=== PATIENT | female | born 1955 | race Caucasian/White ===

== ENCOUNTER 2020-06-06 13:37 | Inpatient (IN) ==
[2020-06-06] MEDS ORDERED: IOPAMIDOL 100 ML BOTTLE IV ONE (13:38)
[2020-06-06] MEDS ORDERED: 0.9 % SODIUM CHLORIDE 2,000 ML IV ONE (13:59)
[2020-06-06] MEDS ORDERED: 0.9 % SODIUM CHLORIDE 500 ML IV ONE (14:01)
--- NOTE | 2020-06-06 14:52 | XRay Report ---
INDICATION: rales, fever TECHNIQUE: AP portable semiupright chest x-ray COMPARISON: Previous chest x-ray dated 06/28/2015 FINDINGS:Right-sided ventriculoperitoneal shunt catheter Lungs:Lungs are negative. No focal pulmonary parenchymal infiltrate or mass Heart, vascular:No significant cardiomegaly. Pulmonary vascularity is normal. No pulmonary edema or pulmonary congestion Mediastinum, vimal:No mediastinal widening. No hilar mass Pleura:No pleural fluid. No pleural-based mass or calcification Skeletal:Negative. IMPRESSION: 1. Negative AP chest x-ray 2. No significant interval change since 06/28/2015 Interpreted and Authenticated by: Logan Rankin 06/06/20
[2020-06-06 15:21] LABS: Basophils # (Auto) 0.06 K/mcL (0.00-0.20); Basophils % (Auto) 0.7 % (0.0-2.0); Eosinophils # (Auto) 0 K/mcL (0.00-0.70); Eosinophils % (Auto) 0 % (0.0-7.0); Hemoglobin 14.1 g/dL (12.0-15.0); Lymphocytes # (Auto) 1.58 K/mcL (1.50-4.80); Lymphocytes % (Auto) 17.8 % (15.0-49.0); Mean Cell Volume 94.6 fL (80.0-100.0); Mean Platelet Volume 11.4 fL (7.4-10.4); Monocytes # (Auto) 0.99 K/mcL (0.10-0.90); Monocytes % (Auto) 11.1 % (1.0-12.0); Neutrophils % (Auto) 70.4 % (38.0-78.0); Platelet Count 264 K/mcL (140-440); RBC 4.65 M/mcL (4.00-5.20); Red Cell Distribution Width 14.6 % (11.5-14.5); WBC 8.9 K/mcL (4.5-11.0)
[2020-06-06 15:28] LABS: Appearance,Urine CLEAR (Clear); Bilirubin,Urine Negative (Negative); Color,Urine YELLOW; Culture Indicated,Urine No; Glucose,Urine (UA) >=500 mg/dL (Negative); Ketones,Urine 5 mg/dL (Negative); Leukocyte Esterase,Urine Negative /ug (Negative); Mucus,Urine MOD /hpf; Nitrate,Urine Negative (Negative); Protein,Urine Negative (Negative); Specific Gravity,Urine 1.022 (1.000-1.035); Urine Blood Negative (Negative); Urine RBC 1 /hpf (0-3); Urine Squamous Epithelial Cell 0 /hpf (0-4); Urine WBC 1 /hpf (0-4); Urobilinogen,Urine Negative
[2020-06-06] MEDS ORDERED: ACETAMINOPHEN 325 MG TABLET PO ONE (15:45)
[2020-06-06] MEDS ORDERED: INSULIN REGULAR, HUMAN 1 UNIT/0.01 ML UNIT IV ONE (15:45)
[2020-06-06] MEDS ORDERED: ACETAMINOPHEN 650 MG/65 ML BAG IV ONE (15:48)
[2020-06-06 15:55] LABS: Beta Hydroxybutyrate 0.91 mmol/L (<0.27)
[2020-06-06 15:56] LABS: Creatine Kinase 153 U/L (24-170)
[2020-06-06 16:03] LABS: ALT/SGPT 11 U/L (<40); AST/SGOT 16 U/L (<32); Albumin 3.5 gm/dL (3.2-5.2); Albumin/Globulin Ratio 0.9 (1.0-2.3); Alkaline Phosphatase 121 U/L (39-117); Bilirubin,Total 0.6 mg/dL (0.1-1.0); Blood Urea Nitrogen 49 mg/dL (8-23); Calcium 9.1 mg/dL (8.6-10.4); Carbon Dioxide 25 mmol/L (22-30); Chloride 98 mmol/L (96-108); Glomerular Filtration Rate 43; Glucose 467 mg/dL (70-105)
--- NOTE | 2020-06-06 16:34 | Emergency Department Note ---
HPI General Chief complaint: Altered Mental Status Stated complaint: altered mental status, fever Time Seen by Provider: 06/06/20 16:49 Source: EMS Mode of arrival: EMS Limitations: altered mental status History of Present Illness HPI Narrative: Narrative: 65-year-old female comes in from [facility] nursing facility for fever and decreased mental status. She is nonverbal normally and interacts with staff only in a limited fashion. However this is much decreased. Her temperature is 102.4. She normally has rales and is on 2 L of oxygen which she continues today. I am not able to get any meaningful history or review of systems except from the nursing facility She is blind. She only moans she does not talk. She has a history of prior stroke. She is a full code. I briefly discussed with the label tacker who also sees this patient at the longterm-she notes the patient is at her baseline in terms of verbal-and is usually positioned as such Related Data Home Medications Medication Instructions Recorded Confirmed acetaminophen 325 mg PO Q4HP PRN 08/29/15 07/17/16 ascorbic acid (vitamin C) 500 mg PO BID 06/06/20 06/06/20 cholecalciferol (vitamin D3) 50 mcg PO QDAY 06/06/20 06/06/20 dextromethorphan-quinidine 1 cap PO BID 06/06/20 06/06/20 [Nuedexta] divalproex [Depakote] 250 mg PO BID 06/06/20 06/06/20 escitalopram oxalate 20 mg PO QDAY 06/06/20 06/06/20 insulin aspart U-100 See Protocol SUBCUT TID 06/06/20 06/06/20 insulin detemir U-100 See Rx Instructions .ROUTE .COMPLEX 06/06/20 06/06/20 multivitamin [Multiple Vitamins] 1 tab PO QDAY 06/06/20 06/06/20 omeprazole 20 mg PO QAM 06/06/20 06/06/20 oxycodone 5 mg PO BID 06/06/20 06/06/20 polyethylene glycol 3350 17 g PO BID 06/06/20 06/06/20 quetiapine [Seroquel] 25 mg PO BID 06/06/20 06/06/20 sennosides-docusate sodium 1 tab-cap PO BID 06/06/20 06/06/20 tamsulosin [Flomax] 0.4 mg PO QHS 06/06/20 06/06/20 white petrolatum-mineral oil 1 applic OPHTHALMIC (EYE) QHS 06/06/20 06/06/20 [Refresh Lacri-Lube] Allergies Allergy/AdvReac Type Severity Reaction Status Date / Time Amoxicillin [From Augmentin] Allergy Unknown Unknown Verified 06/06/20 15:28 clavulanic acid Allergy Unknown Unknown Verified 06/06/20 15:28 morphine Allergy Unknown Verified 06/06/20 13:41 Penicillins [PENICILLINS] Allergy Unknown Unknown Verified 06/06/20 13:41 Review of Systems ROS ROS Narrative: Narrative: Limitations: ROS unobtainable due to patients medical condition [facility] Narrative Patient History Narrative: Narrative: Medical/Surgical/Family History All Active Problems (Updated 06/06/20 @ 18:38 by Max Ray MD) DKA, type 1 (Acute) Acute kidney injury (Acute) Fever of unknown origin (Acute) Constipation (Acute) Hyperglycemia (Chronic) Encephalopathy (Chronic) Acute renal failure (Chronic) Sepsis (Chronic) History of cerebral hemorrhage (Chronic) Hx MRSA infection (Chronic) Gastroesophageal reflux (Chronic) Hypothyroidism (Chronic) Dementia (Chronic) Delusional disorder (Chronic) Depression (Chronic) 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) Hypertension (Chronic) Fracture of hip (Chronic) Medical History Acute renal failure (Chronic) Delusional disorder (Chronic) Dementia (Chronic) Depression (Chronic) 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 Her eyes are shut and will not open them; she is nonverbal. No nasal discharge or congestion. Oropharynx with dry buccal mucosa. Neck is supple without lymphadenopathy or thyromegaly. Heart is regular rate and rhythm. Lungs with coarse rales in all hatch. I do not hear any wheezing. She is normoxic on 2 L nasal cannula. Abdomen is soft nontender nondistended. No peritoneal signs or guarding. No pedal edema. General Limitations: altered mental status Course Vital Signs Vital signs: Vital Signs Temperature 102.4 F H 06/06/20 13:37 Pulse Rate 120 H 06/06/20 13:37 Respiratory Rate 20 06/06/20 13:37 Blood Pressure 128/61 06/06/20 13:37 Pulse Oximetry (%) 96 06/06/20 13:37 Temperature 101.6 F H 06/06/20 18:31 Pulse Rate 109 H 06/06/20 18:31 Respiratory Rate 24 H 06/06/20 18:31 Blood Pressure 118/54 06/06/20 18:31 Pulse Oximetry (%) 95 06/06/20 18:31 MDM MDM Narrative Medical decision making narrative: Narrative: Concern with DKA as she is a type I diabetic and has a blood sugar over 500 with altered mental status. We will give her 10 units of insulin start fluids. Insulin drip However DKA will not cause a fever but can be caused by a fever. We will screen her for flu and check for Covid although she already had a 2 months ago. Start acetaminophen Covid and influenza Bren swabs were negative. She continued to have fever. Blood sugar came down to 300 with just fluid and 10 units. Insulin drip at 2 units/h Laboratory confirms DKA but we are unclear on the source. X-ray of the chest is negative. We will do chest abdomen pelvis CT scan. Mild increase in creatinine to 1.3-acute kidney injury. She already has a Burden in place with dark yellow urine in the bag Troponin is the top end of normal at 0.03. We will repeat that-this is likely secondary to the other issues going on and not a true heart issue-but we will check it out and get an EKG EKG is unrevealing. CT scan of the chest abdomen pelvis showed multiple chronic findings but no acute to account for her fever. She has severe constipation but no evidence of mechanical bowel obstruction. See full report for chronic findings-of note is severe coronary calcifications, advanced for age Because we did not find a source for her fever I went back and did a full skin exam on her she does have a tiny stage I pressure ulcer at the right buttock. However I do not see any lesions that would account for the fever Repeat troponin showed no change Briefly discussed with Dr. Shook the hospitalist-he agreed to accept the patient for fever of unknown source and DKA Lab Data Lab results reviewed: Yes I reviewed the patient's lab results. Result diagrams: 06/06/20 14:43 06/06/20 14:43 Labs: Lab Results 06/06/20 06/06/20 06/06/20 Range/Units 14:00 14:42 14:43 WBC 8.9 (4.5-11.0) K/mcL RBC 4.65 (4.00-5.20) M/mcL Hgb 14.1 (12.0-15.0) g/dL Hct 44.0 (36.0-48.0) % MCV 94.6 (80.0-100.0) fL MCH 30.3 (26.0-34.0) pg MCHC 32.0 (31.0-36.0) g/dL RDW 14.6 H (11.5-14.5) % Plt Count 264 (140-440) K/mcL MPV 11.4 H (7.4-10.4) fL Neut % (Auto) 70.4 (38.0-78.0) % Lymph % (Auto) 17.8 (15.0-49.0) % [place] % (Auto) 11.1 (1.0-12.0) % Eos % (Auto) 0 (0.0-7.0) % Baso % (Auto) 0.7 (0.0-2.0) % Lymph # (Auto) 1.58 (1.50-4.80) K/mcL [place] # (Auto) 0.99 H (0.10-0.90) K/mcL Eos # (Auto) 0 (0.00-0.70) K/mcL Baso # (Auto) 0.06 (0.00-0.20) K/mcL Absolute Neutrophils 6.27 (1.80-8.00) K/mcL VBG Lactic Acid (0.5-2.0) mmol/L Sodium (133-145) mmol/L Potassium (3.3-5.1) mmol/L Chloride (96-108) mmol/L Carbon Dioxide (22-30) mmol/L Anion Gap (8.0-16.0) BUN (8-23) mg/dL Creatinine (0.6-1.1) mg/dL POC Creatinine (0.6-1.2) mg/dL GFR Calculation Glucose (70-105) mg/dL Calcium (8.6-10.4) mg/dL Total Bilirubin (0.1-1.0) mg/dL AST (<32) U/L ALT (<40) U/L Alkaline Phosphatase (39-117) U/L Ammonia (11-51) umol/L Total Creatine Kinase (24-170) U/L Troponin T (<0.03) ng/mL Total Protein (5.9-8.4) gm/dL Albumin (3.2-5.2) gm/dL Globulin (2.2-3.7) gm/dL Albumin/Globulin Ratio (1.0-2.3) Beta-Hydroxybutyrate 0.91 H (<0.27) mmol/L Urine Color Yellow Urine Appearance Clear (Clear) Urine pH 5.0 (5.0-9.0) Ur Specific [place] 1.022 (1.000-1.035) Urine Protein Negative (Negative) mg/dL Urine Glucose (UA) >=500 A (Negative) mg/dL Urine Ketones 5 A (Negative) mg/dL Urine Occult Blood Negative (Negative) mg/dL Urine Nitrate Negative (Negative) Urine Bilirubin Negative (Negative) mg/dL Urine Urobilinogen Negative mg/dL Ur Leukocyte Esterase Negative (Negative) /ug Urine RBC 1 (0-3) /hpf Urine WBC 1 (0-4) /hpf Ur Squamous Epith Cells 0 (0-4) /hpf Urine Bacteria None (0) /hpf Urine Mucus Mod A (None) /hpf Ur Culture Indicated? No 06/06/20 06/06/20 06/06/20 Range/Units 14:43 14:43 14:45 WBC (4.5-11.0) K/mcL RBC (4.00-5.20) M/mcL Hgb (12.0-15.0) g/dL Hct (36.0-48.0) % MCV (80.0-100.0) fL MCH (26.0-34.0) pg MCHC (31.0-36.0) g/dL RDW (11.5-14.5) % Plt Count (140-440) K/mcL MPV (7.4-10.4) fL Neut % (Auto) (38.0-78.0) % Lymph % (Auto) (15.0-49.0) % [place] % (Auto) (1.0-12.0) % Eos % (Auto) (0.0-7.0) % Baso % (Auto) (0.0-2.0) % Lymph # (Auto) (1.50-4.80) K/mcL [place] # (Auto) (0.10-0.90) K/mcL Eos # (Auto) (0.00-0.70) K/mcL Baso # (Auto) (0.00-0.20) K/mcL Absolute Neutrophils (1.80-8.00) K/mcL VBG Lactic Acid (0.5-2.0) mmol/L Sodium 140 (133-145) mmol/L Potassium 4.0 (3.3-5.1) mmol/L Chloride 98 (96-108) mmol/L Carbon Dioxide 25 (22-30) mmol/L Anion Gap 17.0 H (8.0-16.0) BUN 49 H (8-23) mg/dL Creatinine 1.3 H (0.6-1.1) mg/dL POC Creatinine 1.3 H (0.6-1.2) mg/dL GFR Calculation 43 Glucose 467 H* (70-105) mg/dL Calcium 9.1 (8.6-10.4) mg/dL Total Bilirubin 0.6 (0.1-1.0) mg/dL AST 16 (<32) U/L ALT 11 (<40) U/L Alkaline Phosphatase 121 H (39-117) U/L Ammonia (11-51) umol/L Total Creatine Kinase 153 (24-170) U/L Troponin T 0.03 H (<0.03) ng/mL Total Protein 7.5 (5.9-8.4) gm/dL Albumin 3.5 (3.2-5.2) gm/dL Globulin 4.0 H (2.2-3.7) gm/dL Albumin/Globulin Ratio 0.9 L (1.0-2.3) Beta-Hydroxybutyrate (<0.27) mmol/L Urine Color Urine Appearance (Clear) Urine pH (5.0-9.0) Ur Specific [place] (1.000-1.035) Urine Protein (Negative) mg/dL Urine Glucose (UA) (Negative) mg/dL Urine Ketones (Negative) mg/dL Urine Occult Blood (Negative) mg/dL Urine Nitrate (Negative) Urine Bilirubin (Negative) mg/dL Urine Urobilinogen mg/dL Ur Leukocyte Esterase (Negative) /ug Urine RBC (0-3) /hpf Urine WBC (0-4) /hpf Ur Squamous Epith Cells (0-4) /hpf Urine Bacteria (0) /hpf Urine Mucus (None) /hpf Ur Culture Indicated? 06/06/20 06/06/20 06/06/20 Range/Units 15:00 15:00 17:45 WBC (4.5-11.0) K/mcL RBC (4.00-5.20) M/mcL Hgb (12.0-15.0) g/dL Hct (36.0-48.0) % MCV (80.0-100.0) fL MCH (26.0-34.0) pg MCHC (31.0-36.0) g/dL RDW (11.5-14.5) % Plt Count (140-440) K/mcL MPV (7.4-10.4) fL Neut % (Auto) (38.0-78.0) % Lymph % (Auto) (15.0-49.0) % [place] % (Auto) (1.0-12.0) % Eos % (Auto) (0.0-7.0) % Baso % (Auto) (0.0-2.0) % Lymph # (Auto) (1.50-4.80) K/mcL [place] # (Auto) (0.10-0.90) K/mcL Eos # (Auto) (0.00-0.70) K/mcL Baso # (Auto) (0.00-0.20) K/mcL Absolute Neutrophils (1.80-8.00) K/mcL VBG Lactic Acid 1.6 (0.5-2.0) mmol/L Sodium (133-145) mmol/L Potassium (3.3-5.1) mmol/L Chloride (96-108) mmol/L Carbon Dioxide (22-30) mmol/L Anion Gap (8.0-16.0) BUN (8-23) mg/dL Creatinine (0.6-1.1) mg/dL POC Creatinine (0.6-1.2) mg/dL GFR Calculation Glucose (70-105) mg/dL Calcium (8.6-10.4) mg/dL Total Bilirubin (0.1-1.0) mg/dL AST (<32) U/L ALT (<40) U/L Alkaline Phosphatase (39-117) U/L Ammonia 24 (11-51) umol/L Total Creatine Kinase (24-170) U/L Troponin T 0.03 H (<0.03) ng/mL Total Protein (5.9-8.4) gm/dL Albumin (3.2-5.2) gm/dL Globulin (2.2-3.7) gm/dL Albumin/Globulin Ratio (1.0-2.3) Beta-Hydroxybutyrate (<0.27) mmol/L Urine Color Urine Appearance (Clear) Urine pH (5.0-9.0) Ur Specific [place] (1.000-1.035) Urine Protein (Negative) mg/dL Urine Glucose (UA) (Negative) mg/dL Urine Ketones (Negative) mg/dL Urine Occult Blood (Negative) mg/dL Urine Nitrate (Negative) Urine Bilirubin (Negative) mg/dL Urine Urobilinogen mg/dL Ur Leukocyte Esterase (Negative) /ug Urine RBC (0-3) /hpf Urine WBC (0-4) /hpf Ur Squamous Epith Cells (0-4) /hpf Urine Bacteria (0) /hpf Urine Mucus (None) /hpf Ur Culture Indicated? Radiology Data Radiology results reviewed: Yes I reviewed the patient's radiology results. EKG Data EKG #1: EKG attestation: Yes I reviewed and interpreted this EKG. and Yes There are no EKG findings of acute coronary syndrome EKG shows normal: sinus rhythm Discharge Plan Patient/Caregiver Discharge Instructions Pt seen by ROOM MAID/PA only: No Clinical Impression: Acute kidney injury, Fever of unknown origin DKA, type 1 Qualifiers: Diabetes mellitus complication detail: with coma Qualified Code(s): E10.11 - Type 1 diabetes mellitus with ketoacidosis with coma Constipation Qualifiers: Constipation type: unspecified constipation type Qualified Code(s): K59.00 - Constipation, unspecified Patient Disposition: [facility]fer As [facility]pt ([facility]) Condition: Fair Follow up with: Thea Berg MD [Primary Care Provider] - Prescriptions: No Action acetaminophen 325 MG tablet 325 mg PO Q4HP PRN (Reason: Pain) RF: 0 multivitamin [Multiple Vitamins] Tablet 1 tab PO QDAY RF: 0 quetiapine [Seroquel] 25 mg Tablet 25 mg PO BID RF: 0 divalproex [Depakote] 250 mg Tablet,Delayed Release (Dr/Ec) 250 mg PO BID RF: 0 polyethylene glycol 3350 17 gram Powder In Packet 17 g PO BID RF: 0 ascorbic acid (vitamin C) 500 mg Tablet 500 mg PO BID RF: 0 tamsulosin [Flomax] 0.4 mg Capsule 0.4 mg PO QHS RF: 0 insulin aspart U-100 100 unit/mL Solution See Protocol unit SUBCUT TID RF: 0 oxycodone 5 mg Capsule 5 mg PO BID RF: 0 omeprazole 20 mg Capsule,Delayed Release(Dr/Ec) 20 mg PO QAM RF: 0 escitalopram oxalate 20 mg Tablet 20 mg PO QDAY RF: 0 insulin detemir U-100 100 unit/mL Solution See Rx Instructions .ROUTE .COMPLEX RF: 0 Refresh Lacri-Lube 56.8-42.5 % Ointment 1 applic OPHTHALMIC (EYE) QHS RF: 0 cholecalciferol (vitamin D3) 50 mcg (2,000 unit) Capsule 50 mcg PO QDAY RF: 0 Nuedexta 20-10 mg Capsule 1 cap PO BID RF: 0 sennosides-docusate sodium 8.6-50 mg Capsule 1 tab-cap PO BID RF: 0
[2020-06-06] MEDS ORDERED: INSULIN REGULAR, HUMAN 50 UNIT in 0.9 % SODIUM CHLORIDE 99.5 ML IV SCH ×2 (16:45→21:00)
--- NOTE | 2020-06-06 17:53 | Cat Scan Report ---
INDICATION: fever, DKA COMPARISON: Previous chest x-ray dated 06/06/2020. Previous abdominal ultrasound dated 08/23/2017 TECHNIQUE: Axial images were obtained through the chest,abdomen and pelvis. Sagittally and coronally reformatted images. 80ml Isovue 370 injected intravenously. FINDINGS: Poor quality examination. This patient was unable to suspend respiration. She is cachectic and her arms are at her side and overlying the abdomen. There is a right-sided ventriculoperitoneal shunt catheter. There is an intramedullary nail within the right femur. Chest CT: Lungs:Lung bases are abnormal with linear densities. Findings are probably secondary to atelectasis. No parenchymal consolidation. No discrete mass. Mediastinum:No pathologic mediastinal adenopathy. No hilar mass. Thoracic aorta is normal without aneurysmal dilatation Heart:No significant cardiomegaly. No pericardial effusion. There are severe coronary artery calcification, advanced for age Pleura:No pleural fluid. No pleural-based mass. No pleural calcifications Axilla, supraclavicular regions, chest wall:No pathologic axillary or supraclavicular adenopathy Musculoskeletal:Negative thoracic spine. No compression fractures. No lytic lesions. No paraspinal mass. There is thoracolumbar scoliosis Abdomen/Pelvis: Liver:There is a 3 cm mass in the posterior segment of the right lobe of the liver. Appearance is consistent with hemangioma. Liver is otherwise negative. Gallbladder, bilary:No calcified gallstones. No dilated bile ducts. Spleen:No splenomegaly. No focal intrasplenic abnormality. Normal enhancement of splenic and portal veins. Pancreas:No pancreatic mass. No peripancreatic abnormality Adrenal glands:Negative Kidneys, ureters, bladder:No solid or cystic renal mass. No hydronephrosis. No hydroureter. No ureteral stones There is a Burden catheter within the urinary bladder Gastrointestinal:No detectable colonic mass. There is no diverticulitis. Very prominent fecal material within the colon consistent with severe constipation. There is dilatation of the rectum. Rectum contains fluid Small bowel is negative. No mechanical small bowel obstruction. Stomach and duodenum are within normal limits Appendix: The appendix is negative Vascular:There is calcification of the abdominal aorta. No abdominal aortic aneurysm. There appears to be stenosis at the origin of the celiac trunk and there may be intraluminal thrombus. Lymphatic:No pathologic retroperitoneal or mesenteric adenopathy Mesentery, peritoneum:No free intraperitoneal fluid. No intra-abdominal abscess. No pneumoperitoneum Reproductive:Uterus is to the left of midline. There are very large calcifications consistent with large calcified fibroids. No detectable adnexal mass Musculoskeletal:No compression fractures. No lytic lesions. Sacrum, pelvis. There is an intramedullary nail within the proximal right femur. No inguinal or abdominal wall hernia IMPRESSION: 1. Poor quality examination as above 2. Cachexia 3. Large amount of fecal material consistent with severe constipation 4. Linear densities at both lung bases consistent with atelectasis 5. Benign hepatic hemangioma 6. Atherosclerotic calcification with severe coronary artery calcification. 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 Enlarged uterus with large dense calcifications consistent with fibroids The exam was performed using radiation dose optimization techniques including, but not limited to, automated exposure control, adjustment of the mA and/or kV according to patient size and use of iterative reconstruction technique. Interpreted and Authenticated by: Logan Rankin 06/06/20
[2020-06-06] MEDS ORDERED: POTASSIUM CHLORIDE 40 MEQ in DEXTROSE 5% IN WATER 500 ML IV PRN (19:15)
[2020-06-06] MEDS ORDERED: ONDANSETRON 4 MG ODT TABLET SL PRN (19:15)
[2020-06-06] MEDS ORDERED: ONDANSETRON 4 MG/2 ML VIAL IV PRN (19:15)
[2020-06-06] MEDS ORDERED: PIPERACILLIN SODIUM/TAZOBACTAM 3.375 GM in DEXTROSE 5% IN WATER 50 ML IV SCH (19:15)
[2020-06-06] MEDS ORDERED: MELATONIN 3 MG TABLET PO PRN (19:15)
[2020-06-06] MEDS ORDERED: MAGNESIUM SULFATE 2 GM/50 ML BAG IV PRN (19:15)
[2020-06-06] MEDS ORDERED: POTASSIUM CHLORIDE 20 MEQ PACKET PO PRN (19:15)
[2020-06-06] MEDS ORDERED: BISACODYL 10 MG SUPP.RECT PR PRN (19:15)
[2020-06-06] MEDS ORDERED: POLYETHYLENE GLYCOL 3350 17 GM PACKET PO PRN (19:15)
[2020-06-06] MEDS ORDERED: ACETAMINOPHEN 325 MG TABLET PO PRN (19:15)
[2020-06-06] MEDS: 0.9 % SODIUM CHLORIDE 1,000 ML IV SCH (20:30)
--- NOTE | 2020-06-06 20:38 | Internal Med History&Physical ---
HPI History of Present Illness Patient information: Note initiated : 06/06/20 at 8:31 pm Service Date, if different from initiated Date: [] Patient: Chriss García a 65 y/o F admitted on 06/06/20 for altered mental status, fever. Chief Complaint: History of present illness: Ms. García is a 65 year old F resident of [facility] with a history of hemorrhagic CVA nonverbal requiring 24/7 assistance with ADLs who presents to the ER with acute change in mental status with confusion weakness. Patient has been noted to be febrile/lethargic and poorly responsive, She is referred to the ER from facility for further evaluation. Initial work-up was consistent with fever of 102.9. Blood sugars in excess of 400/elevated ketones/anion anion gap consistent with DKA. However no evidence source of infection was identified including negative normal CT/chest x-ray/UA. Patient was started on insulin drip/empiric antibiotics after cultures were drawn. COVID-19 negative. Hospital service was consulted in light of above. At the time of evaluation patient is nonverbal currently at baseline. No evident skin rash or joint swelling or decubitus. No sinus ear or nose drainage noted. Most of the history was obtained from review of medical records and ER physician. Patient at baseline is noncommunicative. 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) Hypertension (Chronic) Fracture of hip (Chronic) Medical History Acute renal failure (Chronic) Delusional disorder (Chronic) Dementia (Chronic) Depression (Chronic) 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) Encephalopathy (Chronic) Fracture of hip (Chronic) Gastroesophageal reflux (Chronic) History of cerebral hemorrhage (Chronic) Hx MRSA infection (Chronic) Hyperglycemia (Chronic) Hypertension (Chronic) Hypothyroidism (Chronic) Sepsis (Chronic) Surgical History Hx of surgical procedure (Chronic) [employer] shunt placement Family History (Updated 12/08/15 @ 11:02 by Jody Parikh) Other No pertinent family history Social History housing: detention smoking status: Never smoker alcohol intake frequency: does not drink substance use type: does not use MEDS/ALLERGIES Home Medications and Allergies Home Medications Medication Instructions Recorded Confirmed Type acetaminophen 325 mg PO Q4HP PRN 08/29/15 06/06/20 History ascorbic acid (vitamin C) 500 mg PO BID 06/06/20 06/06/20 History cholecalciferol (vitamin D3) 50 mcg PO QDAY 06/06/20 06/06/20 History dextromethorphan-quinidine 1 cap PO BID 06/06/20 06/06/20 History [Nuedexta] divalproex [Depakote] 250 mg PO BID 06/06/20 06/06/20 History escitalopram oxalate 20 mg PO QDAY 06/06/20 06/06/20 History insulin aspart U-100 See Protocol SUBCUT TID 06/06/20 06/06/20 History insulin detemir U-100 See Rx Instructions .ROUTE .COMPLEX 06/06/20 06/06/20 History multivitamin [Multiple Vitamins] 1 tab PO QDAY 06/06/20 06/06/20 History omeprazole 20 mg PO QAM 06/06/20 06/06/20 History oxycodone 5 mg PO BID 06/06/20 06/06/20 History polyethylene glycol 3350 17 g PO BID 06/06/20 06/06/20 History quetiapine [Seroquel] 25 mg PO BID 06/06/20 06/06/20 History sennosides-docusate sodium 1 tab-cap PO BID 06/06/20 06/06/20 History tamsulosin [Flomax] 0.4 mg PO QHS 06/06/20 06/06/20 History white petrolatum-mineral oil 1 applic OPHTHALMIC (EYE) QHS 06/06/20 06/06/20 History [Refresh Lacri-Lube] Allergies Allergy/AdvReac Type Severity Reaction Status Date / Time Amoxicillin [From Augmentin] Allergy Unknown Unknown Verified 06/06/20 15:28 clavulanic acid Allergy Unknown Unknown Verified 06/06/20 15:28 morphine Allergy Unknown Verified 06/06/20 13:41 Penicillins [PENICILLINS] Allergy Unknown Unknown Verified 06/06/20 13:41 EXAM Constitutional Vitals: Temp Pulse Resp BP Pulse Ox 101.3 F H 110 H 20 117/53 97 06/06/20 20:01 06/06/20 20:01 06/06/20 20:01 06/06/20 20:01 06/06/20 20:01 Head normocephalic Oral cavity curdy white precipitate No ear nose discharge No eye discharge Neck supple no lymphadenopathy S1-S2 tachycardia Nonlabored breathing Nondistended nontender abdomen Lower extremity no cyanosis clubbing or joint swelling Skin no suspicious lesion Psych nonverbal but no agitation Neuro unable to be performed DATA Data Completed and Pending Labs: Labs from last 24 hours 06/06/20 06/06/20 06/06/20 17:45 15:00 15:00 WBC RBC Hgb Hct MCV MCH MCHC RDW Plt Count MPV Neut % (Auto) Lymph % (Auto) [place] % (Auto) Eos % (Auto) Baso % (Auto) Lymph # (Auto) [place] # (Auto) Eos # (Auto) Baso # (Auto) Absolute Neutrophils VBG Lactic Acid 1.6 Sodium Potassium Chloride Carbon Dioxide Anion Gap BUN Creatinine POC Creatinine GFR Calculation Glucose Calcium Total Bilirubin AST ALT Alkaline Phosphatase Ammonia 24 Total Creatine Kinase Troponin T 0.03 H Total Protein Albumin Globulin Albumin/Globulin Ratio Beta-Hydroxybutyrate Urine Color Urine Appearance Urine pH Ur Specific [place] Urine Protein Urine Glucose (UA) Urine Ketones Urine Occult Blood Urine Nitrate Urine Bilirubin Urine Urobilinogen Ur Leukocyte Esterase Urine RBC Urine WBC Ur Squamous Epith Cells Urine Bacteria Urine Mucus Ur Culture Indicated? 06/06/20 06/06/20 06/06/20 14:45 14:43 14:43 WBC RBC Hgb Hct MCV MCH MCHC RDW Plt Count MPV Neut % (Auto) Lymph % (Auto) [place] % (Auto) Eos % (Auto) Baso % (Auto) Lymph # (Auto) [place] # (Auto) Eos # (Auto) Baso # (Auto) Absolute Neutrophils VBG Lactic Acid Sodium 140 Potassium 4.0 Chloride 98 Carbon Dioxide 25 Anion Gap 17.0 H BUN 49 H Creatinine 1.3 H POC Creatinine 1.3 H GFR Calculation 43 Glucose 467 H* Calcium 9.1 Total Bilirubin 0.6 AST 16 ALT 11 Alkaline Phosphatase 121 H Ammonia Total Creatine Kinase 153 Troponin T 0.03 H Total Protein 7.5 Albumin 3.5 Globulin 4.0 H Albumin/Globulin Ratio 0.9 L Beta-Hydroxybutyrate Urine Color Urine Appearance Urine pH Ur Specific [place] Urine Protein Urine Glucose (UA) Urine Ketones Urine Occult Blood Urine Nitrate Urine Bilirubin Urine Urobilinogen Ur Leukocyte Esterase Urine RBC Urine WBC Ur Squamous Epith Cells Urine Bacteria Urine Mucus Ur Culture Indicated? 06/06/20 06/06/20 06/06/20 14:43 14:42 14:00 WBC 8.9 RBC 4.65 Hgb 14.1 Hct 44.0 MCV 94.6 MCH 30.3 MCHC 32.0 RDW 14.6 H Plt Count 264 MPV 11.4 H Neut % (Auto) 70.4 Lymph % (Auto) 17.8 [place] % (Auto) 11.1 Eos % (Auto) 0 Baso % (Auto) 0.7 Lymph # (Auto) 1.58 [place] # (Auto) 0.99 H Eos # (Auto) 0 Baso # (Auto) 0.06 Absolute Neutrophils 6.27 VBG Lactic Acid Sodium Potassium Chloride Carbon Dioxide Anion Gap BUN Creatinine POC Creatinine GFR Calculation Glucose Calcium Total Bilirubin AST ALT Alkaline Phosphatase Ammonia Total Creatine Kinase Troponin T Total Protein Albumin Globulin Albumin/Globulin Ratio Beta-Hydroxybutyrate 0.91 H Urine Color Yellow Urine Appearance Clear Urine pH 5.0 Ur Specific [place] 1.022 Urine Protein Negative Urine Glucose (UA) >=500 A Urine Ketones 5 A Urine Occult Blood Negative Urine Nitrate Negative Urine Bilirubin Negative Urine Urobilinogen Negative Ur Leukocyte Esterase Negative Urine RBC 1 Urine WBC 1 Ur Squamous Epith Cells 0 Urine Bacteria None Urine Mucus Mod A Ur Culture Indicated? No A/P Narrative A/P Narrative: * DKA-patient management protocol with aggressive crystalloid/insulin drip/electrolyte replacement * Fever of unknown origin-no clear source identified. On empiric antibiotic coverage until further source evaluation. * EREN secondary to volume depletion/sepsis * Acute change mental status likely secondary to volume depletion/DKA. Continue management of primary etiology * History of anxiety disorder continue escitalopram/divalproex/quetiapine * Chronic pain on oxycodone chronic constipation continue senna/bowel protocol * GERD continue PPI * Limited code * Prophylaxis Heparin Plan * Inpatient admission * Antibiotic coverage * DKA management protocol * Pre-existing medical condition management home medications once able to take p.o. * Discharge planning per case management Patient critically ill, [place] 2 score on presentation 17. High risk mortality. ICU care Time Spent With Patient Time: Total time spent is greater than 50% in coordination of care (as documented) at patient's floor/unit and/or counseling patient:
[2020-06-06] MEDS ORDERED: cefTRIAXone 2 GM VIAL ONE (20:46)
[2020-06-06] MEDS: 0.9 % SODIUM CHLORIDE 250 ML IV SCH (20:53)
[2020-06-06] MEDS ORDERED: SENNOSIDES/DOCUSATE SODIUM 1 TAB TABLET PO SCH (21:00)
[2020-06-06] MEDS: 0.9 % SODIUM CHLORIDE 10 ML SYRINGE IV SCH (21:00)
[2020-06-06] MEDS: cefTRIAXone 2 GM in DEXTROSE 5% IN WATER 50 ML IV SCH (21:03)
[2020-06-06] MEDS: HEPARIN 5,000 UNIT/ML VIAL SQ SCH (21:05)
[2020-06-06] MEDS: DOCUSATE SODIUM 100 MG CAPSULE PO SCH (21:06)
[2020-06-06] MEDS: ACETAMINOPHEN 650 MG/65 ML BAG IV PRN (23:19)
[2020-06-07] MEDS: 0.9 % SODIUM CHLORIDE 10 ML SYRINGE IV SCH ×3 (05:16→20:36)
[2020-06-07 05:50] LABS: Basophils # (Auto) 0.07 K/mcL (0.00-0.20); Basophils % (Auto) 0.8 % (0.0-2.0); Eosinophils # (Auto) 0 K/mcL (0.00-0.70); Eosinophils % (Auto) 0 % (0.0-7.0); Hematocrit 43.7 % (36.0-48.0); Hemoglobin 13.2 g/dL (12.0-15.0); Lymphocytes # (Auto) 2.13 K/mcL (1.50-4.80); Lymphocytes % (Auto) 23.9 % (15.0-49.0); Mean Cell Volume 102.1 fL (80.0-100.0); Mean Corpuscular HGB Conc 30.2 g/dL (31.0-36.0); Mean Platelet Volume 10.8 fL (7.4-10.4); Monocytes # (Auto) 0.92 K/mcL (0.10-0.90); Monocytes % (Auto) 10.3 % (1.0-12.0); Platelet Count 213 K/mcL (140-440); RBC 4.28 M/mcL (4.00-5.20); Red Cell Distribution Width 14.5 % (11.5-14.5); WBC 8.9 K/mcL (4.5-11.0)
[2020-06-07 06:20] LABS: ALT/SGPT 8 U/L (<40); AST/SGOT 14 U/L (<32); Albumin 3.1 gm/dL (3.2-5.2); Albumin/Globulin Ratio 0.8 (1.0-2.3); Alkaline Phosphatase 101 U/L (39-117); Bilirubin,Direct < 0.2 mg/dL (<0.3); Bilirubin,Total 0.4 mg/dL (0.1-1.0); Blood Urea Nitrogen 34 mg/dL (8-23); Calcium 8.6 mg/dL (8.6-10.4); Carbon Dioxide 28 mmol/L (22-30); Chloride 109 mmol/L (96-108); Globulin 3.7 gm/dL (2.2-3.7); Glomerular Filtration Rate 91; Glucose 150 mg/dL (70-105); Lactate Dehydrogenase 186 U/L (135-225); Phosphorous 3.8 mg/dL (2.5-4.5); Triglycerides 124 mg/dL (<150); Uric Acid 4.4 mg/dL (2.5-8.0)
[2020-06-07] MEDS: DOCUSATE SODIUM 100 MG CAPSULE PO SCH ×3 (07:01→20:35)
[2020-06-07] MEDS: ACETAMINOPHEN 650 MG/65 ML BAG IV PRN (08:15)
[2020-06-07] MEDS: HEPARIN 5,000 UNIT/ML VIAL SQ SCH ×2 (08:17→20:36)
[2020-06-07] MEDS: MULTIVIT,THER IRON,CA,FA & MIN 1 TABLET PO SCH (08:17)
[2020-06-07] MEDS: NYSTATIN 500,000 UNITS/5 ML ORAL.SUSP PO SCH (08:23)
[2020-06-07] MEDS ORDERED: BISACODYL 10 MG SUPP.RECT PR PRN (08:39)
[2020-06-07] MEDS ORDERED: MAGNESIUM HYDROXIDE 30 ML ORAL.SUSP PO PRN (08:39)
[2020-06-07] MEDS ORDERED: IPRATROPIUM/ALBUTEROL SULFATE 1 PUFF INHALER INH PRN (08:39)
[2020-06-07] MEDS ORDERED: ACETAMINOPHEN (PP) 325MG TABLET (#50) PO PRN (08:39)
[2020-06-07] MEDS ORDERED: INSULIN DETEMIR U SCH (08:45)
[2020-06-07] MEDS ORDERED: DEXTROSE 50% 50 ML VIAL IV PRN (08:54)
[2020-06-07] MEDS ORDERED: DEXTROSE 31 GM ORAL.SUSP PO PRN (08:54)
[2020-06-07] MEDS ORDERED: [UNRECOGNIZED DRUG - OTHER] PO SCH (09:00)
[2020-06-07] MEDS ORDERED: SENNOSIDES DOCUSATE SODIUM PO SCH (09:00)
[2020-06-07] MEDS ORDERED: NUT TX GLUC INTOL LAC FREE SOY PO SCH (09:00)
[2020-06-07] MEDS: oxyCODONE HCL 5 MG TABLET PO SCH ×2 (09:56→20:35)
[2020-06-07] MEDS: amLODIPine 10 MG TABLET PO SCH (09:56)
[2020-06-07] MEDS: LOSARTAN 50 MG TABLET PO SCH (09:56)
[2020-06-07] MEDS: QUEtiapine 25 MG TABLET PO SCH ×2 (09:56→20:35)
[2020-06-07] MEDS: INSULIN GLARGINE, HUMAN 1 UNIT/0.01 ML SQ SCH (09:57)
[2020-06-07] MEDS: 0.9 % SODIUM CHLORIDE 250 ML IV SCH (10:00)
[2020-06-07] MEDS: INSULIN LISPRO 1 UNIT/0.01 ML UNIT SQ SCH ×4 (10:15→20:36)
--- NOTE | 2020-06-07 10:48 | Internal Med Progress Note ---
SUBJECTIVE Subjective Patient information: Note initiated : 06/07/20 at 10:45 am Service Date, if different from initiated Date: [] Patient: Chriss García 65 y/o F admitted on 06/06/20 for altered mental status, fever. Chief Complaint: [] Interval history: History of present illness: Ms. García is a 65 year old F resident of [facility] with a history of hemorrhagic CVA nonverbal requiring 24/7 assistance with ADLs who presents to the ER with acute change in mental status with confusion weakness. Patient has been noted to be febrile/lethargic and poorly responsive, She is referred to the ER from facility for further evaluation. Initial work-up was consistent with fever of 102.9. Blood sugars in excess of 400/elevated ketones/anion anion gap consistent with DKA. However no evidence source of infection was identified including negative normal CT/chest x-ray/UA. Patient was started on insulin drip/empiric antibiotics after cultures were drawn. COVID-19 negative. Hospital service was consulted in light of above. At the time of evaluation patient is nonverbal currently at baseline. No evident skin rash or joint swelling or decubitus. No sinus ear or nose drainage noted. Most of the history was obtained from review of medical records and ER physician. Patient at baseline is noncommunicative. /-patient doing well. Now off insulin drip. Transition to subcu insulin/CC diet. Case discussed with patient's legal POA Giovanna Gomez on telephone at [phone]. Updated patient's clinical status and discharge plan. Will likely discharge to SNF in 48 hours pending clinical improvement. No overnight fever chills. White count stable. No evidence of infection on labs/cultures or imaging. T-max 100.5. More alert lucid. No overnight telemetry events. Constitutional Vitals: Vital Signs Temp Pulse Resp BP Pulse Ox 100.1 F H 101 H 16 141/50 94 06/07/20 08:01 06/07/20 05:01 06/07/20 08:01 06/07/20 08:01 06/07/20 08:01 Period Temp Pulse Resp BP Sys/Silva Pulse Ox Last 24 Hr 99.8 F-102.4 F 101-120 12-24 101-141/47-69 91-98 Intake and Output 06/06/20 06/07/20 06/07/20 21:59 05:59 13:59 Intake Total 2583 115 250 Output Total 250 325 Balance 2333 -210 250 Weight 51.392 kg On diet per ST More alert Remains nonverbal No telemetry events Stable hemodynamics Intake & Output: Intake & Output 06/06/20 06/07/20 06/07/20 21:59 05:59 13:59 Intake Total 2583 115 250 Output Total 250 325 Balance 2333 -210 250 Weight 51.392 kg Intake: IV 2583 65 250 Sodium Chloride 0.9% 2,000 ml @ 2000 Wide Open IV .Q0M ONE Rx#: [id number] Sodium Chloride 0.9% 250 ml @ 250 20 mls/hr IV .[id number] [facility] Rx#: [id number] Sodium Chloride 0.9% 500 ml @ 500 Wide Open IV .Q0M ONE Rx#: [id number] HumuLIN R 50 UNIT In Sodium 18 Chloride 0.9% 99.5 ml @ 3 UNIT/ HR 6 mls/hr IV DUR [facility] Rx#: [id number] IV - Manual Only 50 Output: Urine Catheter Amount 250 325 Other: Urine Appearance Clear Clear Uretheral (Burden) Clear Clear Urine Color Dark Yellow Dark Yellow Uretheral (Burden) Dark Yellow Dark Yellow Urine Odor Normal Stool Size Small Stool Color Brown Stool Consistency Liquid # of times incontinent of 1 Bowels OBJ DATA Labs CBC & Chem 7: 06/07/20 04:52 06/07/20 04:52 Labs: Abnormal Lab Results 06/07/20 06/07/20 06/06/20 04:52 04:52 17:45 MCV 102.1 H MCHC 30.2 L RDW MPV 10.8 H [place] # (Auto) 0.92 H Sodium 148 H Chloride 109 H Anion Gap BUN 34 H Creatinine POC Creatinine Glucose 150 H Alkaline Phosphatase Troponin T 0.03 H Albumin 3.1 L Globulin Albumin/Globulin Ratio 0.8 L Beta-Hydroxybutyrate Urine Glucose (UA) Urine Ketones Urine Mucus 06/06/20 06/06/20 06/06/20 14:45 14:43 14:43 MCV MCHC RDW MPV [place] # (Auto) Sodium Chloride Anion Gap 17.0 H BUN 49 H Creatinine 1.3 H POC Creatinine 1.3 H Glucose 467 H* Alkaline Phosphatase 121 H Troponin T 0.03 H Albumin Globulin 4.0 H Albumin/Globulin Ratio 0.9 L Beta-Hydroxybutyrate Urine Glucose (UA) Urine Ketones Urine Mucus 06/06/20 06/06/20 06/06/20 14:43 14:42 14:00 MCV MCHC RDW 14.6 H MPV 11.4 H [place] # (Auto) 0.99 H Sodium Chloride Anion Gap BUN Creatinine POC Creatinine Glucose Alkaline Phosphatase Troponin T Albumin Globulin Albumin/Globulin Ratio Beta-Hydroxybutyrate 0.91 H Urine Glucose (UA) >=500 A Urine Ketones 5 A Urine Mucus Mod A Meds: Medications Acetaminophen (Tylenol) 650 mg PO Q4-6HP PRN; Protocol PRN Reason: Per Pain Protocol/Fever > 101 Albuterol/Ipratropium (Combivent) 1 puff INH Q6HP PRN PRN Reason: wheezing/SOB Amlodipine Besylate (Norvasc) 10 mg PO QAM [facility] Last Admin: 06/07/20 09:56 Dose: 10 mg Documented by: Bisacodyl (Dulcolax) 10 mg NC DAILYP PRN PRN Reason: Constipation Dextrose (Dextrose 50%) 0 ml IV UD PRN PRN Reason: Hypoglycemia Diagnostic Test (Pha) (Accu-Chek) 1 each FS ACHS [facility] Last Admin: 06/07/20 10:04 Dose: 1 each Documented by: Divalproex Sodium (Depakote Delayed Release) 250 mg PO BID [facility] Docusate Sodium (Colace) 100 mg PO BID [facility] Last Admin: 06/06/20 21:06 Dose: Not Given Documented by: Escitalopram Oxalate (Lexapro) 20 mg PO QDAY [facility] Glucose (Insta-Glucose) 15 gm PO PRN PRN PRN Reason: Hypoglycemia Heparin Sodium (Porcine) (Heparin) 5,000 unit SQ Q12 [facility] Last Admin: 06/07/20 08:17 Dose: 5,000 unit Documented by: Potassium Chloride 40 meq/ (Dextrose) 520 mls @ 130 mls/hr IV UD PRN PRN Reason: K+ = or < 3.5 Acetaminophen (Ofirmev) 650 mg in 65 mls @ 130 mls/hr IV Q6HP PRN; Protocol PRN Reason: Per Pain Protocol/Fever > 101 Last Admin: 06/07/20 08:15 Dose: 130 mls/hr Documented by: Magnesium Sulfate (Magnesium Sulfate) 2 gm in 50 mls @ 50 mls/hr IV UD PRN PRN Reason: MG = or < 1.7 Sodium Chloride (Sodium Chloride 0.9%) 1,000 mls @ 50 mls/hr IV .Q20H [facility] Stop: 06/09/20 07:14 Last Admin: 06/06/20 20:30 Dose: 50 mls/hr Documented by: Ceftriaxone Sodium 2 gm/ (Dextrose) 50 mls @ 100 mls/hr IV DAILY [facility] Last Admin: 06/06/20 21:03 Dose: Not Given Documented by: Insulin Glargine (Lantus) 7 unit SQ DAILY [facility] Last Admin: 06/07/20 09:57 Dose: 7 unit Documented by: Insulin Glargine (Lantus) 6 unit SQ DAILY@1600 DEBBIE Insulin Human Lispro (Humalog) 0 unit SQ ACHS [facility]; Protocol Last Admin: 06/07/20 10:15 Dose: 4 unit Documented by: Iron Carb/Multivit/[place]/Folic Acid (Multivitamin W/Minerals) 1 tab PO DAILY [facility] Last Admin: 06/07/20 08:17 Dose: 1 tab Documented by: Levothyroxine Sodium (Synthroid) 200 mcg PO ACB [facility] Losartan Potassium (Cozaar) 50 mg PO QAM [facility] Last Admin: 06/07/20 09:56 Dose: 50 mg Documented by: Magnesium Hydroxide (Milk Of Magnesia) 30 ml PO Q3DP PRN PRN Reason: No BM for 3 days Melatonin (Melatonin 3mg Tablet) 3 mg PO HSP PRN PRN Reason: Insomnia Nystatin (Nystatin) 500,000 units PO DAILY [facility] Last Admin: 06/07/20 08:23 Dose: 500,000 units Documented by: Omeprazole (Prilosec) 20 mg PO ACB [facility] Ondansetron HCl (Zofran Odt) 4 mg SL Q4-6HP PRN; Protocol PRN Reason: Nausea And Vomiting Ondansetron HCl (Zofran) 4 mg IV Q4-6HP PRN; Protocol PRN Reason: Nausea And Vomiting Oxycodone HCl (Roxicodone) 5 mg PO BID [facility] Last Admin: 06/07/20 09:56 Dose: 5 mg Documented by: Polyethylene Glycol (Miralax) 17 gm PO BID [facility] Potassium Chloride (Klor-Con) 40 meq PO DAILYP PRN PRN Reason: K+ < 3.5 Last Admin: 06/07/20 08:17 Dose: 40 meq Documented by: Quetiapine Fumarate (Seroquel) 25 mg PO BID [facility] Last Admin: 06/07/20 09:56 Dose: 25 mg Documented by: Senna/Docusate Sodium (Senna Plus Tablet) 1 tab PO BID [facility] Sodium Chloride (Saline Flush) 10 ml IV Q8 [facility] Last Admin: 06/07/20 05:16 Dose: Not Given Documented by: Tamsulosin HCl (Flomax) 0.4 mg PO QHS DEBBIE A/P Narrative A/P Narrative: * DKA-clinical improvement noted on management protocol. Anion gap normalized. Transition to subcu insulin. * Fever of unknown origin-no clear source identified on imaging/blood work/cultures. DC empiric antibiotic in 24 hours if no source of infection i dentified * EREN secondary to volume depletion/sepsis. Clinically improved with creatinine down from 1.3->0.7 * Acute change mental status likely secondary to volume depletion/DKA. Clinical Improved * History of anxiety disorder continue escitalopram/divalproex/quetiapine * Chronic pain on oxycodone chronic constipation continue senna/bowel protocol * GERD continue PPI * Limited code * Prophylaxis Heparin Plan * Transition to subcu insulin * Crystalloids * DC antibiotics in 24 hours if no evidence of infection * Pre-existing medical condition management home medications once able to take p.o. * Discharge planning per case management likely back to SNF [facility] Time Spent With Patient Time: Total time spent is greater than 50% in coordination of care (as documented) at patient's floor/unit and/or counseling patient: QUALITY Stroke Symptom Onset Unknown: No VTE Deep Vein Thrombosis/Pulmonary Embolism Present on Admission: No
[2020-06-07] MEDS: OMEPRAZOLE 20 MG CAPSULE PO SCH (11:00)
[2020-06-07] MEDS: SENNOSIDES/DOCUSATE SODIUM 1 TAB TABLET PO SCH ×2 (11:00→20:35)
[2020-06-07] MEDS: ESCITALOPRAM 20 MG TABLET PO SCH (11:00)
[2020-06-07] MEDS: DIVALPROEX SODIUM 250 MG TABLET PO SCH ×2 (11:00→20:36)
[2020-06-07] MEDS: POLYETHYLENE GLYCOL 3350 17 GM PACKET PO SCH ×2 (11:00→20:36)
[2020-06-07] MEDS: cefTRIAXone 2 GM in DEXTROSE 5% IN WATER 50 ML IV SCH (12:52)
[2020-06-07] MEDS ORDERED: INSULIN GLARGINE, HUMAN 1 UNIT/0.01 ML SQ SCH (16:00)
[2020-06-07] MEDS: 0.9 % SODIUM CHLORIDE 1,000 ML IV SCH (16:26)
[2020-06-07] MEDS ORDERED: TAMSULOSIN 0.4 MG CAPSULE PO SCH (21:00)
[2020-06-08] MEDS: 0.9 % SODIUM CHLORIDE 10 ML SYRINGE IV SCH (05:48)
--- NOTE | 2020-06-08 06:48 | XRay Report ---
INDICATION: Interval Change TECHNIQUE: AP portable semiupright chest x-ray COMPARISON: Previous chest x-ray dated 06/28/2015 FINDINGS:Right ventriculoperitoneal shunt catheter overlying the chest Lungs:Lungs are negative. No focal pulmonary parenchymal infiltrate or mass Heart, vascular:No significant cardiomegaly. Pulmonary vascularity is normal. No pulmonary edema or pulmonary congestion Mediastinum, vimal:No mediastinal widening. No hilar mass Pleura:No pleural fluid. No pleural-based mass or calcification Skeletal:Negative. IMPRESSION: Negative AP chest x-ray Interpreted and Authenticated by: Logan Rankin 06/08/20
[2020-06-08] MEDS: OMEPRAZOLE 20 MG CAPSULE PO SCH (06:52)
[2020-06-08 07:03] LABS: Basophils # (Auto) 0.08 K/mcL (0.00-0.20); Basophils % (Auto) 1.2 % (0.0-2.0); Eosinophils # (Auto) 0.07 K/mcL (0.00-0.70); Hematocrit 38.3 % (36.0-48.0); Hemoglobin 11.6 g/dL (12.0-15.0); Lymphocytes # (Auto) 1.96 K/mcL (1.50-4.80); Lymphocytes % (Auto) 29.2 % (15.0-49.0); Mean Cell Volume 99.2 fL (80.0-100.0); Mean Corpuscular HGB Conc 30.3 g/dL (31.0-36.0); Mean Platelet Volume 11.5 fL (7.4-10.4); Monocytes # (Auto) 0.57 K/mcL (0.10-0.90); Monocytes % (Auto) 8.5 % (1.0-12.0); Neutrophils % (Auto) 60.1 % (38.0-78.0); Platelet Count 180 K/mcL (140-440); RBC 3.86 M/mcL (4.00-5.20); Red Cell Distribution Width 14.1 % (11.5-14.5); WBC 6.7 K/mcL (4.5-11.0)
[2020-06-08] MEDS ORDERED: LEVOTHYROXINE 100 MCG TABLET PO SCH (07:30)
[2020-06-08 07:34] LABS: ALT/SGPT 9 U/L (<40); AST/SGOT 15 U/L (<32); Albumin/Globulin Ratio 1.1 (1.0-2.3); Alkaline Phosphatase 90 U/L (39-117); Bilirubin,Direct < 0.2 mg/dL (<0.3); Bilirubin,Total 0.3 mg/dL (0.1-1.0); Blood Urea Nitrogen 27 mg/dL (8-23); Calcium 8.3 mg/dL (8.6-10.4); Carbon Dioxide 27 mmol/L (22-30); Chloride 114 mmol/L (96-108); Globulin 2.8 gm/dL (2.2-3.7); Glomerular Filtration Rate 95; Glucose 177 mg/dL (70-105); Lactate Dehydrogenase 196 U/L (135-225); Phosphorous 2.6 mg/dL (2.5-4.5); Triglycerides 170 mg/dL (<150)
[2020-06-08] MEDS: INSULIN GLARGINE, HUMAN 1 UNIT/0.01 ML SQ SCH (08:40)
[2020-06-08] MEDS: ESCITALOPRAM 20 MG TABLET PO SCH (08:40)
[2020-06-08] MEDS: DIVALPROEX SODIUM 250 MG TABLET PO SCH (08:40)
[2020-06-08] MEDS: INSULIN LISPRO 1 UNIT/0.01 ML UNIT SQ SCH ×2 (08:40→11:40)
[2020-06-08] MEDS: HEPARIN 5,000 UNIT/ML VIAL SQ SCH (08:41)
[2020-06-08] MEDS: cefTRIAXone 2 GM in DEXTROSE 5% IN WATER 50 ML IV SCH (08:41)
[2020-06-08] MEDS: NYSTATIN 500,000 UNITS/5 ML ORAL.SUSP PO SCH (08:41)
[2020-06-08] MEDS: POLYETHYLENE GLYCOL 3350 17 GM PACKET PO SCH (08:41)
[2020-06-08] MEDS: oxyCODONE HCL 5 MG TABLET PO SCH (08:41)
[2020-06-08] MEDS: amLODIPine 10 MG TABLET PO SCH (08:41)
[2020-06-08] MEDS: LOSARTAN 50 MG TABLET PO SCH (08:41)
[2020-06-08] MEDS: DOCUSATE SODIUM 100 MG CAPSULE PO SCH (08:41)
[2020-06-08] MEDS: MULTIVIT,THER IRON,CA,FA & MIN 1 TABLET PO SCH (08:41)
[2020-06-08] MEDS: SENNOSIDES/DOCUSATE SODIUM 1 TAB TABLET PO SCH (08:42)
[2020-06-08] MEDS: QUEtiapine 25 MG TABLET PO SCH (08:42)
[2020-06-08] MEDS ORDERED: 0.45 % SODIUM CHLORIDE 1,000 ML IV SCH (09:30)
--- NOTE | 2020-06-08 12:11 | Discharge Summary ---
Discharge Provider Provider Patient information: Note initiated : 06/08/20 at 12:10 pm Service Date, if different from initiated Date: [] Patient: Chriss García 65 y/o F admitted on 06/06/20 for altered mental status, fever. Discharge diagnosis * DKA-resolved with management of subcu insulin/VC diet * Fever of unknown origin-resolved * EREN secondary to volume depletion/sepsis. Clinically resolved with creatinine down from 1.3->0.7 * Acute change mental status likely secondary to volume depletion/DKA. back to baseline * History of anxiety disorder stable escitalopram/divalproex/quetiapine * Chronic pain on oxycodone chronic constipation continue senna/bowel protocol * GERD continue PPI Hospital course nterval history: History of present illness: Ms. García is a 65 year old F resident of [facility] with a history of hemorrhagic CVA nonverbal requiring 24/7 assistance with ADLs who presents to the ER with acute change in mental status with confusion weakness. Patient has been noted to be febrile/lethargic and poorly responsive, She is referred to the ER from facility for further evaluation. Initial work-up was consistent with fever of 102.9. Blood sugars in excess of 400/elevated ketones/anion anion gap consistent with DKA. However no evidence source of infection was identified including negative normal CT/chest x-ray/UA. Patient was started on insulin drip/empiric antibiotics after cultures were drawn. COVID-19 negative. Hospital service was consulted in light of above. At the time of evaluation patient is nonverbal currently at baseline. No evident skin rash or joint swelling or decubitus. No sinus ear or nose drainage noted. Most of the history was obtained from review of medical records and ER physician. Patient at baseline is noncommunicative. 06/07-patient doing well. Now off insulin drip. Transition to subcu insulin/CC diet. Case discussed with patient's legal POA Giovanna Gomez on telephone at [phone]. Updated patient's clinical status and discharge plan. Will likely discharge to SNF in 48 hours pending clinical improvement. No overnight fever chills. White count stable. No evidence of infection on labs/cultures or imaging. T-max 100.5. More alert lucid. No overnight telemetry events. 06/08-patient doing well. No drainage. No concerns per staff. DKA resolved. Tolerating diet. Mentation baseline. Discharging to SNF for continued post hospitalization rehab Date of admission: 06/06/20 19:03 Discharge date: 06/08/20 Primary care physician: Thea Berg Consults: 06/06/20 Consult to Physician [CONS] Stat Comment: Consulting Provider: Farhat Saab Reason For Exam: Physician to Consult Discharge Meds Discharge Medications Home Medications acetaminophen 325 mg PO Q4HP PRN 08/29/15 [History Confirmed 06/07/20 Last Taken 06/06/20 12:30] Nuedexta 1 cap PO BID 06/06/20 [History Confirmed 06/07/20 Last Taken 06/06/20 09:00] Refresh Lacri-Lube 1 applic OPHTHALMIC (EYE) QHS 06/06/20 [History Confirmed 06/07/20 Last Taken 06/05/20 21:00] ascorbic acid (vitamin C) 500 mg PO BID 06/06/20 [History Confirmed 06/07/20 Last Taken 06/06/20 09:00] cholecalciferol (vitamin D3) 50 mcg PO QDAY 06/06/20 [History Confirmed 06/07/20 Last Taken 06/06/20 09:00] divalproex [Depakote] 250 mg PO BID 06/06/20 [History Confirmed 06/07/20 Last Taken 06/06/20 09:00] escitalopram oxalate 20 mg PO QDAY 06/06/20 [History Confirmed 06/07/20 Last Taken 06/06/20 09:00] insulin aspart U-100 See Protocol SUBCUT 0700 06/06/20 [History Confirmed 06/07/20 Last Taken 06/06/20 07:00] insulin detemir U-100 See Rx Instructions .ROUTE .COMPLEX 06/06/20 [History Confirmed 06/07/20 Last Taken 06/06/20 07:00] multivitamin [Multiple Vitamins] 1 tab PO QDAY 06/06/20 [History Confirmed 06/07/20 Last Taken 06/06/20 09:00] omeprazole 20 mg PO QAM 06/06/20 [History Confirmed 06/07/20 Last Taken 06/06/20 09:00] oxycodone 5 mg PO BID 06/06/20 [History Confirmed 06/07/20 Last Taken 06/06/20 09:00] polyethylene glycol 3350 17 g PO BID 06/06/20 [History Confirmed 06/07/20 Last Taken 06/06/20 09:00] quetiapine [Seroquel] 25 mg PO BID 06/06/20 [History Confirmed 06/07/20 Last Taken 06/06/20 09:00] sennosides-docusate sodium 1 tab-cap PO BID 06/06/20 [History Confirmed 06/07/20 Last Taken 06/06/20 09:00] tamsulosin [Flomax] 0.4 mg PO QHS 06/06/20 [History Confirmed 06/07/20 Last Taken 06/05/20 21:00] Acidophilus-Pectin 1 cap PO QAM 06/07/20 [History Confirmed 06/07/20 Last Taken 06/06/20 09:00] Biofreeze (menthol) 1 applic TOPICAL Q6HP PRN 06/07/20 [History Confirmed 06/07/20 Last Taken Unknown] Combivent Respimat 1 puff INHALATION Q6HP PRN 06/07/20 [History Confirmed 06/07/20 Last Taken Unknown] Fleet Enema 118 ml VA ONCE PRN 06/07/20 [History Confirmed 06/07/20 Last Taken Unknown] Glucerna 1 ea PO TID 06/07/20 [History Confirmed 06/07/20 Last Taken 06/05/20 21:00] amlodipine 10 mg PO QAM 06/07/20 [History Confirmed 06/07/20 Last Taken 06/06/20 09:00] bisacodyl [Dulcolax (bisacodyl)] 10 mg VA DAILYP PRN 06/07/20 [History Confirmed 06/07/20 Last Taken Unknown] cranberry 450 mg PO TID 06/07/20 [History Confirmed 06/07/20 Last Taken 06/06/20 15:00] insulin aspart U-100 4 unit SUBCUT 1700 06/07/20 [History Confirmed 06/07/20 Last Taken 06/05/20 17:00] insulin aspart U-100 5 unit SUBCUT 1300 06/07/20 [History Confirmed 06/07/20 Last Taken 06/05/20 13:00] levothyroxine 200 mcg PO QAM 06/07/20 [History Confirmed 06/07/20 Last Taken 06/06/20 09:00] losartan 50 mg PO QAM 06/07/20 [History Confirmed 06/07/20 Last Taken 06/06/20 09:00] magnesium hydroxide [Milk of Magnesia] 30 ml PO QDAY PRN 06/07/20 [History Confirmed 06/07/20 Last Taken Unknown] simethicone 80 mg PO Q6HP PRN 06/07/20 [History Confirmed 06/07/20 Last Taken Unknown] COURSE Hospital Course Hospital course: . Discharge diagnosis: DKA Time Spent with Patient Time attestation: Total time spent providing and/or coordinating discharge services: EXAM Constitutional Vitals: Temp Pulse Resp BP Pulse Ox 97.8 F 101 H 12 131/62 93 06/08/20 12:00 06/07/20 05:01 06/08/20 12:00 06/08/20 12:00 06/08/20 12:00 Discharge Data Data Completed and Pending Labs on day of discharge: Labs from last 24 hours 06/08/20 06/08/20 06:30 06:30 WBC 6.7 RBC 3.86 L Hgb 11.6 L Hct 38.3 MCV 99.2 MCH 30.1 MCHC 30.3 L RDW 14.1 Plt Count 180 MPV 11.5 H Neut % (Auto) 60.1 Lymph % (Auto) 29.2 Mckenzie % (Auto) 8.5 Eos % (Auto) 1.0 Baso % (Auto) 1.2 Lymph # (Auto) 1.96 Mckenzie # (Auto) 0.57 Eos # (Auto) 0.07 Baso # (Auto) 0.08 Absolute Neutrophils 4.03 Sodium 150 H Potassium 4.3 Chloride 114 H Carbon Dioxide 27 Anion Gap 9.0 BUN 27 H Creatinine 0.6 GFR Calculation 95 Glucose 177 H Uric Acid 3.0 Calcium 8.3 L Phosphorus 2.6 Magnesium 2.6 H Total Bilirubin 0.3 Direct Bilirubin < 0.2 GGT 30 AST 15 ALT 9 Alkaline Phosphatase 90 Lactate Dehydrogenase 196 Total Protein 5.8 L Albumin 3.0 L Globulin 2.8 Albumin/Globulin Ratio 1.1 Triglycerides 170 H Preliminary micro results at discharge 06/06/20 14:40 Blood Culture - Preliminary Blood 06/06/20 14:35 Blood Culture - Preliminary Blood Discharge Plan Patient/Caregiver Discharge Instructions Activity: increase activity as tolerated Diet: Consistent Carbohydrate Activity Restrictions/Additional Instructions: Maintain fall risk Diabetic diet Continue PT OT Prescriptions: Continued acetaminophen 325 MG tablet 325 mg PO Q4HP PRN (Reason: Pain/Elevated Temperature) RF: 0 multivitamin [Multiple Vitamins] Tablet 1 tab PO QDAY RF: 0 quetiapine [Seroquel] 25 mg Tablet 25 mg PO BID RF: 0 divalproex [Depakote] 250 mg Tablet,Delayed Release (Dr/Ec) 250 mg PO BID RF: 0 polyethylene glycol 3350 17 gram Powder In Packet 17 g PO BID RF: 0 ascorbic acid (vitamin C) 500 mg Tablet 500 mg PO BID RF: 0 tamsulosin [Flomax] 0.4 mg Capsule 0.4 mg PO QHS RF: 0 insulin aspart U-100 100 unit/mL Solution See Protocol sliding scale dose subcut 0700 RF: 0 oxycodone 5 mg Capsule 5 mg PO BID RF: 0 omeprazole 20 mg Capsule,Delayed Release(Dr/Ec) 20 mg PO QAM RF: 0 escitalopram oxalate 20 mg Tablet 20 mg PO QDAY RF: 0 insulin detemir U-100 100 unit/mL Solution See Rx Instructions .ROUTE .COMPLEX RF: 0 Refresh Lacri-Lube 56.8-42.5 % Ointment 1 applic OPHTHALMIC (EYE) QHS RF: 0 cholecalciferol (vitamin D3) 50 mcg (2,000 unit) Capsule 50 mcg PO QDAY RF: 0 Nuedexta 20-10 mg Capsule 1 cap PO BID RF: 0 sennosides-docusate sodium 8.6-50 mg Capsule 1 tab-cap PO BID RF: 0 magnesium hydroxide [Milk of Magnesia] 400 mg/5 mL Suspension 30 ml PO QDAY PRN (Reason: No BM for 3 days) RF: 0 simethicone 40 mg/0.6 mL Drops,Suspension 80 mg PO Q6HP PRN (Reason: gas ) RF: 0 insulin aspart U-100 100 unit/mL Solution 5 unit SUBCUT 1300 RF: 0 insulin aspart U-100 100 unit/mL Solution 4 unit SUBCUT 1700 RF: 0 losartan 50 mg tablet 50 mg PO QAM RF: 0 amlodipine 10 mg tablet 10 mg PO QAM RF: 0 levothyroxine 200 mcg tablet 200 mcg PO QAM RF: 0 Glucerna Liquid 1 ea PO TID RF: 0 cranberry 450 mg Tablet 450 mg PO TID RF: 0 Acidophilus-Pectin 75 million cell -100 mg Capsule 1 cap PO QAM RF: 0 bisacodyl [Dulcolax (bisacodyl)] 10 mg Suppository 10 mg VA DAILYP PRN (Reason: Constipation) RF: 0 Fleet Enema 19-7 gram/118 mL Enema 118 ml VA ONCE PRN (Reason: Constipation) RF: 0 Biofreeze (menthol) 4 % Gel 1 applic TOPICAL Q6HP PRN (Reason: left hip pain) RF: 0 Combivent Respimat 20-100 mcg/actuation mist 1 puff INHALATION Q6HP PRN (Reason: wheezing/SOB) RF: 0 Other Ambulatory Orders: OT Discharge Order (Routine) Facility: [facility] - Location: [facility] Ordered By: Farhat Saab Physical Therapy at Discharge - General (Routine) Facility: [facility] - Location: [facility] Ordered By: Farhat Saab Follow Up Plan Follow up with: Thea Berg MD [Primary Care Provider] - Patient Disposition: Xfer SNF Prognosis: Fair Rehab Potential: Undetermined I certify that the patient requires SNF services: Yes Overall status at discharge: patient is progressing back to baseline Discharge Orders: Discharge Order (Routine); Ordered 06/08/20 Ordered By: Farhat Saab QUALITY VTE Deep Vein Thrombosis/Pulmonary Embolism Present on Admission: No
== END 2020-06-08 13:59 | DRG 637 ==
LOC: ED 13:37 → ICU 19:03
PROVIDERS: ADMIT Internal Medicine; ATTEND Internal Medicine